=== PATIENT | male | born 1995 | race Caucasian/White ===

== ENCOUNTER 2023-12-20 09:10 | Day surgery (SDC) | payer OTHER, SELFPAY ==
[2023-12-20 10:09] VITALS: BP 131/79; PULSE 65; RESP 18; TEMP 36.1; O2SAT 100
[2023-12-20] MEDS: LACTATED RINGERS 1,000 ML 42 ML IV (10:22)
--- NOTE | 2023-12-20 10:51 | PM.PREOP ---
Pre-operative Note Interval Note History & Physical reviewed/Exam performed by Physician: Yes Changes to H&P: No
--- NOTE | 2023-12-20 10:52 | PM.OP.COLON ---
Operative Date/Time/Diagnoses Date of procedure: 12/20/23 Pre-op diagnosis: See indication and findings Procedure & Clinicians Study performed: Colonoscopy Indications: Rectal bleed Surgeon: Jenni Rockwell Procedure Notes Procedure in detail: After informed consent was obtained the patient was placed in left lateral decubitus position. The video colonoscope was introduced the rectum slowly advanced cecum. Scope on slow withdrawal mucosa was carefully examined. The scope was removed. The patient tolerated the procedure well. Blood loss none Complications none Sedation mac Findings 1. Minimal internal hemorrhoids 2. Otherwise negative colonoscopy to cecum Patient has no further bleeding. He will need follow-up colonoscopy at age 45.
[2023-12-20 11:16] VITALS: BP 100/58; PULSE 65; RESP 19; TEMP 36.2; O2SAT 95
[2023-12-20 11:20] VITALS: BP 102/60; PULSE 60; RESP 19; O2SAT 95
[2023-12-20 11:25] VITALS: BP 111/73; PULSE 62; RESP 18; O2SAT 95
[2023-12-20 11:31] VITALS: BP 118/73; PULSE 60; RESP 16; O2SAT 99
[2023-12-20 11:40] VITALS: BP 120/70; PULSE 62; RESP 18; O2SAT 99
== END 2023-12-20 11:58 | disposition home or self-care (01) ==
PROVIDERS: PCP Student in an Organized Health Care Education/Training Program; Referring Provider Internal Medicine Gastroenterology; Visit Provider Internal Medicine Gastroenterology
PROC: 0DJD8ZZ Inspection of Lower Intestinal Tract, Via Natural or Artificial Opening Endoscopic (ICD-10-PCS; CPT 45378; principal; 2023-12-20 10:30)
DX: K62.5 Hemorrhage of anus and rectum (principal); K64.8 Other hemorrhoids
CPT/HCPCS: 45378; J2704